=== PATIENT | male | born 1960 | race Caucasian/White ===

== ENCOUNTER → 2018-08-28 | Outpatient (CLI) | payer OTHER ==
[~2018-08-28] MED LIST: AMOX1TAB12 PO; INTESTINEX1 CAP PO; MEDROL4 MG PO; PROTONIX40 MG PO; SYNTHROID50 MCG; XYZAL5 MG PO
== END | disposition home or self-care (01) ==
LOC: NUCLEAR 13:55
DX: M81.0 Age-related osteoporosis without current pathological fracture (principal)

== ENCOUNTER 2021-07-15 08:00 | Outpatient (CLI) | payer OTHER | END 2021-07-15 08:30 | disposition home or self-care (01) | LOC: PPH VACUNA 08:00 | PROVIDERS: ATTEND Emergency Medicine Pediatric Emergency Medicine | DX: Z23 Encounter for immunization (principal) ==